=== PATIENT | male | born 1990 | race Two or more races ===

== ENCOUNTER 2023-04-08 12:07 | Emergency (ER) | payer OTHER ==
[~2023-04-08] VITALS: Ht 165.1 cm; Wt 68.0 kg
[2023-04-08 14:49] LABS: HEMATOCRIT 41.1 % (39.0-48.0); HEMOGLOBIN 14.2 g/dL (13-16.00); MEAN CELL VOLUME 84.2 fL (80.0-100.00); MEAN CORPUSCULAR HEMOGLOBIN 29.2 pg (27.00-32.0); MEAN CORPUSCULAR HGB CONC 34.7 g/dl (32.0-36.0); PLATELET COUNT 220 K/uL (150-450); RED BLOOD COUNT 4.88 M/uL (4.00-6.00); RED CELL DISTRIBUTION WIDTH 13.6 % (11.5-14.5)
[2023-04-08] MEDS ORDERED: CLARITIN10 M1 PO (15:57)
== END 2023-04-08 16:23 | disposition home or self-care (01) ==
LOC: ER 12:08
PROVIDERS: General Practice
DX: R68.89 Other general symptoms and signs (principal); Z20.822 Contact with and (suspected) exposure to COVID-19

== ENCOUNTER 2024-03-08 14:59 | Emergency (ER) | payer OTHER ==
[~2024-03-08] VITALS: Ht 165.1 cm; Wt 68.0 kg
[~2024-03-08 14:59] MED LIST: CLARITIN10 M1 PO
[2024-03-08] MEDS ORDERED: FAMOTIDINE/PF 20 MG/2 ML VIAL IV PUSH ONE (16:30)
[2024-03-08] MEDS ORDERED: 0.9 % SODIUM CHLORIDE 1,000 ML IV SCH (16:30)
[2024-03-08] MEDS ORDERED: KETOROLAC TROMETHAMINE 30 MG VIAL IV ONE (16:30)
[2024-03-08 16:45] LABS: HEMATOCRIT 43.8 % (39.0-48.0); HEMOGLOBIN 15.4 g/dL (13-16.00); MEAN CELL VOLUME 83.2 fL (80.0-100.00); MEAN CORPUSCULAR HEMOGLOBIN 29.3 pg (27.00-32.0); MEAN CORPUSCULAR HGB CONC 35.2 g/dl (32.0-36.0); PLATELET COUNT 241 K/uL (150-450); RED BLOOD COUNT 5.27 M/uL (4.00-6.00); RED CELL DISTRIBUTION WIDTH 13.4 % (11.5-14.5)
[2024-03-08 17:14] LABS: INR 1.02; PARTIAL THROMBOPLASTIN TIME 32.8 SECONDS (22.0-34.0); PROTHROMBIN TIME 11.1 SECONDS (9.0-11.5)
[2024-03-08 17:18] LABS: ALBUMIN 4.4 gm/dL (3.4-5.0); BILIRUBIN TOTAL 0.37 mg/dL (0.3-1.2); CALCIUM 9.1 mg/dL (8.5-10.1); GFR 85.03; GLOBULINA 3.8 G/DL (2.4-3.5); POTASSIUM 3.77 mEq/L (3.5-5.1); TOTAL PROTEIN 8.2 gm/dL (6.4-8.2)
== END 2024-03-08 22:30 | disposition home or self-care (01) ==
LOC: ER 15:01
PROVIDERS: General Practice
DX: R10.10 Upper abdominal pain, unspecified (principal)

== ENCOUNTER 2024-09-09 14:09 | Emergency (ER) | payer OTHER ==
[~2024-09-09] VITALS: Ht 165.1 cm; Wt 73.5 kg
[2024-09-09 14:38] VITALS: BP 95/61; O2SAT 97
[2024-09-09] MEDS ORDERED: NORFLEX100MG PO (16:49)
[2024-09-09] MEDS ORDERED: KETO10TA2 PO (16:49)
[2024-09-09] MEDS ORDERED: KETOROLAC TROMETHAMINE 60 MG VIAL IM ONE ×2 (17:00)
[2024-09-09] MEDS ORDERED: ORPHENADRINE CITRATE 30 MG/ML AMPUL IM ONE (17:00)
[2024-09-09] MEDS ORDERED: ORPHENADRINE CITRATE 30 MG/ML AMPUL ONE (17:00)
== END 2024-09-09 17:17 | disposition home or self-care (01) ==
LOC: ER 14:10
DX: M25.511 Pain in right shoulder (principal); X58.XXXA Exposure to other specified factors, initial encounter; Y93.64 Activity, baseball; Y92.9 Unspecified place or not applicable; Y99.9 Unspecified external cause status

== ENCOUNTER 2024-11-24 12:54 | Emergency (ER) | payer OTHER ==
[~2024-11-24] VITALS: Ht 165.1 cm; Wt 68.0 kg
[~2024-11-24 12:54] MED LIST changes: +KETO10TA2 PO; +NORFLEX100MG PO
[2024-11-24] MEDS ORDERED: ORPHENADRINE CITRATE 30 MG/ML AMPUL ONE (15:05)
[2024-11-24] MEDS ORDERED: ORPHENADRINE CITRATE 30 MG/ML AMPUL IM STA (15:07)
== END 2024-11-24 15:37 | disposition home or self-care (01) ==
LOC: ER 13:55
DX: M25.532 Pain in left wrist (principal)

== ENCOUNTER 2025-03-27 18:58 | Emergency (ER) | payer OTHER ==
[~2025-03-27] VITALS: Ht 165.1 cm; Wt 68.0 kg
[2025-03-27 22:00] LABS: BASO % 0.6 % (0.1-1.2); EOS # 0.42 (0.04-0.54); EOS % 4.8 % (0.7-7.0); LYMPH # 2.15 (1.18-3.74); LYMPH % 24.5 % (19.3-53.1); MEAN PLATELET VOLUME 9.40 fl (9.4-12.4); MONO # 0.62 (0.24-0.82); MONO % 7.1 % (4.7-12.5); NEUT # 5.49 (1.56-6.13); NEUT % 62.7 % (34.0-71.1); RED CELL DISTRIBUTION WIDTH 12.9 % (11.6-14.4)
[2025-03-27 22:32] LABS: ALT/SGPT 74.0 U/L (12-78); AST/SGOT 45.0 U/L (15-37); BILIRUBIN TOTAL 0.29 mg/dL (0.3-1.2); BUN CREA RATIO 14.0 (7.0-25.0); CREATININE SERUM 0.95 mg/dL (0.70-1.30); GFR 89.7; GLOBULINA 2.8 G/DL (2.4-3.5); GLUCOSE FASTING 91.0 mg/dL (65-100); OSMOLALITY SERUM 281.0 MOSM/KG (275-295)
[2025-03-28] MEDS ORDERED: PEPCID AC20 MG PO (01:01)
[2025-03-28] MEDS ORDERED: DICY20TA PO (01:01)
== END 2025-03-28 01:21 | disposition home or self-care (01) ==
LOC: ER 18:59
PROVIDERS: General Practice
DX: K40.91 Unilateral inguinal hernia, without obstruction or gangrene, recurrent (principal)